=== PATIENT | male | born 1960 | race Caucasian/White ===

== ENCOUNTER 2017-07-01 16:11 | Emergency (ER) | payer MEDICARE, OTHER ==
[~2017-07-01] VITALS: Ht 180.3 cm; Wt 72.6 kg
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
--- OUTSIDE RECORDS SUMMARY | 2017-07-01 16:35 | XMS REPORT ---
Author Author ARBEN MEDINA Organization [facility] [place] Address [address] [place] [address] Care Team Providers Care Grocery Store Manager Name Role Phone ARBEN MEDINA Unavailable PROBLEMS Type Condition ICD9-CM Code [id number] Code Onset Dates Condition Status SNOMED Code Problem Paranoid schizophrenia, unspecified condition 295.30 Active 67014525 Problem Routine general medical examination at health care facility V70.0 Active 905574981 Problem Chronic hepatitis C without mention of hepatic coma 070.54 Active 101535757 Problem Mood disorder F39 Active 20572985 Problem Delusional disorder F22 Active 34986972 Problem Hernia of unspecified site of abdominal cavity without mention of obstruction or gangrene 553.9 Active 07070574 Problem Unspecified episodic mood disorder 296.90 Active 279074428 Problem Encounter for long-term (current) use of other medications V58.69 Active 866174622 Problem Abdominal pain, generalized 789.07 Active 996626708 ALLERGIES Unknown Allergies SOCIAL HISTORY No smoking Hx information available PLAN OF CARE VITAL SIGNS MEDICATIONS Medication Instructions Dosage Frequency Start Date End Date Duration Status Seroquel 200 MG Orally twice a day 1 tablet 12h 20 Mar, 2016 Active RESULTS No Results PROCEDURES No Known procedures IMMUNIZATIONS No Known Immunizations
--- OUTSIDE RECORDS SUMMARY | 2017-07-01 16:35 | XMS REPORT ---
Author Author ARBEN MEDINA Organization [facility] Address [address] [place] [address] Care Team Providers Care Managing Broker Name Role Phone ARBEN MEDINA Unavailable PROBLEMS Type Condition ICD9-CM Code VOL29-MV Code Onset Dates Condition Status SNOMED Code Problem Paranoid schizophrenia, unspecified condition 295.30 Active 16274552 Problem Routine general medical examination at health care facility V70.0 Active 101588124 Problem Chronic hepatitis C without mention of hepatic coma 070.54 Active 716424231 Assessment Mood disorder F39 Feb, Active 78711057 Problem Mood disorder F39 Active 04595833 Problem Delusional disorder F22 Active 33220382 Problem Hernia of unspecified site of abdominal cavity without mention of obstruction or gangrene 553.9 Active 52148418 Problem Unspecified episodic mood disorder 296.90 Active 519990813 Problem Encounter for long-term (current) use of other medications V58.69 Active 841217774 Problem Abdominal pain, generalized 789.07 Active 277576501 ALLERGIES Unknown Allergies SOCIAL HISTORY No smoking Hx information available PLAN OF CARE VITAL SIGNS Height 71 in 2016-03-15 Weight 161 lbs 2016-03-15 Heart Rate 72 bpm 2016-03-15 Respiratory Rate 16 2016-03-15 BMI 22.45 kg/m2 2016-03-15 Blood pressure systolic 120 mmHg 2016-03-15 Blood pressure diastolic 78 mmHg 2016-03-15 MEDICATIONS Medication Instructions Dosage Frequency Start Date End Date Duration Status Trazodone HCl 100 MG Orally Once a day 1 tablet at bedtime 24h Feb, 30 day(s) Active Haloperidol 5 MG Orally Twice a day 1 tablet 12h Feb, 30 day(s ) Active RESULTS No Results PROCEDURES Procedure Date Ordered Related Diagnosis Body Site Office Visit, New Pt., Level 2 Mar 15, 2016 IMMUNIZATIONS No Known Immunizations
--- OUTSIDE RECORDS SUMMARY | 2017-07-01 16:35 | XMS REPORT | Continuity of Care Document ---
Author Author [facility] Address Unknown Phone Unavailable Allergies There is no data. Medications There is no data. Problems Date Dx Coded Attending Type Code Diagnosis Diagnosed By 05/08/2013 OJ SALDAÑA APRN 070.54 HEPATITIS C CHRONIC 05/08/2013 OJ SALDAÑA APRN S 296.90 MOOD DISORDER 05/08/2013 OJ SALDAÑA APRN S 553.9 HERNIA UNSPECIFIED SITE 05/08/2013 OJ SALDAÑA APRN S 789.07 ABDOMINAL PAIN GENERALIZED 05/08/2013 OJ SALDAÑA APRN S V58.69 HIGH RISK MEDICATION 05/08/2013 OJ SALDAÑA APRN S V70.0 EXAM - ROUTINE H&P 05/08/2013 OJ SALDAÑA APRN S 070.54 HEPATITIS C CHRONIC 05/08/2013 OJ SALDAÑA APRN S 296.90 MOOD DISORDER 05/08/2013 OJ SALDAÑA APRN S 553.9 HERNIA UNSPECIFIED SITE 05/08/2013 OJ SALDAÑA APRN S 789.07 ABDOMINAL PAIN GENERALIZED 05/08/2013 OJ SALDAÑA APRN S V58.69 HIGH RISK MEDICATION 05/08/2013 OJ SALDAÑA APRN S V70.0 EXAM - ROUTINE H&P 05/08/2013 VENANCIO BENNETT MD 070.54 HEPATITIS C CHRONIC 05/08/2013 VENANCIO BENNETT MD 296.90 MOOD DISORDER 05/08/2013 VENANCIO BENNETT MD 553.9 HERNIA UNSPECIFIED SITE 05/08/2013 VENANCIO BENNETT MD 789.07 ABDOMINAL PAIN GENERALIZED 05/08/2013 VENANCIO BENNETT MD V58.69 HIGH RISK MEDICATION 05/08/2013 VENANCIO BENNETT MD V70.0 EXAM - ROUTINE H&P 05/08/2013 VENANCIO BENNETT MD 070.54 HEPATITIS C CHRONIC 05/08/2013 VENANCIO BENNETT MD 296.90 MOOD DISORDER 05/08/2013 VENANCIO BENNETT MD 553.9 HERNIA UNSPECIFIED SITE 05/08/2013 VENANCIO BENNETT MD 789.07 ABDOMINAL PAIN GENERALIZED 05/08/2013 VENANCIO BENNETT MD V58.69 HIGH RISK MEDICATION 05/08/2013 VENANCIO BENNETT MD V70.0 EXAM - ROUTINE H&P 05/08/2013 JOSH PEPPER APRN 070.54 HEPATITIS C CHRONIC 05/08/2013 JOSH PEPPER APRN 296.90 MOOD DISORDER 05/08/2013 JOSH PEPPER APRN 553.9 HERNIA UNSPECIFIED SITE 05/08/2013 JOSH PEPPER APRN 789.07 ABDOMINAL PAIN GENERALIZED 05/08/2013 JOSH PEPPER APRN V58.69 HIGH RISK MEDICATION 05/08/2013 JOSH PEPPER APRN V70.0 EXAM - ROUTINE H&P 06/10/2013 VENANCIO BENNETT MD 295.30 P SCHIZO PARANOID UNSPECIFIED 06/10/2013 VENANCIO BENNETT MD 295.30 P SCHIZO PARANOID UNSPECIFIED 06/10/2013 JOSH PEPPER APRN 295.30 P SCHIZO PARANOID UNSPECIFIED Procedures Code [place] [address] ROUTINE VENIPUNCTURE 05/08/2013 12305 CBC 05/08/2013 0804397 GFR CALC (RESULT ONLY) 05/08/2013 16634 CMP 05/08/2013 69711 LIPID PANEL 05/08/2013 92063 TSH 05/08/2013 78980 HEPATITIS PROFILE 05/08/2013 9486697 HCV INDEX (RESULT ONLY) 05/09/2013 15890 URINE DRUG SCREEN (IN-HOUSE ) 06/10/2013 Janette Campbell 06/11/2013 56380 PSYCH DIAGNOSTIC EVALUATION 07/23/2013 Results There is no data. Encounters ACCT No. Visit Date/Time Discharge Status Pt. Type Provider Facility Loc./Unit Complaint [id number] 07/23/2013 12:47:00 07/23/2013 23:59:59 CLS Outpatient JOSH PEPPER APRN [id number] 07/23/2013 12:47:00 07/23/2013 23:59:59 CLS Outpatient VENANCIO BENNETT MD [id number] 06/10/2013 10:49:00 06/10/2013 23:59:59 CLS Outpatient VENANCIO BENNETT MD [id number] 05/08/2013 14:56:00 05/08/2013 23:59:59 CLS Outpatient OJ SALDAÑA APRN [id number] 05/08/2013 14:56:00 05/08/2013 23:59:59 CLS Outpatient OJ SALDAÑA APRN
[2017-07-01 16:53] LABS: BASOPHILS # (AUTO) 0.1 10^3/uL (0.0-0.1); BASOPHILS % (AUTO) 0 % (0-10); EOSINOPHILS # (AUTO) 0.2 10^3/uL (0.0-0.3); EOSINOPHILS % (AUTO) 1 % (0-10); HEMATOCRIT 43 % (40-54); HEMOGLOBIN 14.8 G/DL (13.3-17.7); LYMPHOCYTES # (AUTO) 2.8 X 10^3 (1.0-4.0); LYMPHOCYTES % (AUTO) 16 % (12-44); MEAN CORPUSCULAR HEMOGLOBIN 32 PG (25-34); MEAN CORPUSCULAR HGB CONC 34 G/DL (32-36); MEAN CORPUSCULAR VOLUME 92 FL (80-99); MONOCYTES # (AUTO) 1.5 X 10^3 (0.0-1.0); MONOCYTES % (AUTO) 9 % (0-12); NEUTROPHILS # (AUTO) 12.5 X 10^3 (1.8-7.8); NEUTROPHILS % (AUTO) 74 % (42-75); PLATELET COUNT 313 10^3/uL (130-400); RED CELL DISTRIBUTION WIDTH 13.9 % (10.0-14.5)
[2017-07-01] MEDS ORDERED: NS 250 ML (IVPB) BAG IV ONE (17:00)
[2017-07-01] MEDS ORDERED: IOHEXOL 350 MG/ML 100 ML (OMNIPAQUE 350) VIAL IV ONE ×2 (17:00→17:30)
[2017-07-01] MEDS ORDERED: CATHETER FLUSH 10 ML SYR IV PRN (17:00)
[2017-07-01 17:11] LABS: BAND NEUTROPHILS 7 %; BASOPHILS % (MANUAL) 1 %; EOSINOPHILS % (MANUAL) 1 %; LYMPHOCYTES % (MANUAL) 14 %; MONOCYTES % (MANUAL) 4 %; NEUTROPHILS % (MANUAL) 61 %; REACTIVE LYMPHOCYTES 12 %
[2017-07-01 17:12] LABS: ELLIPT/OVALOCYTES SLIGHT; PLATELET CLUMPS OCCASIONAL; POIKILOCYTOSIS SLIGHT; ROULEAUX SLIGHT; STOMATOCYTES SLIGHT
[2017-07-01 17:15] LABS: ALANINE AMINOTRANSFERASE 25 U/L (0-55); ALBUMIN 4.6 GM/DL (3.2-4.5); ALKALINE PHOSPHATASE 58 U/L (40-136); BILIRUBIN,TOTAL 0.9 MG/DL (0.1-1.0); BUN/CREATININE RATIO 12; CALCIUM 9.7 MG/DL (8.5-10.1); CARBON DIOXIDE 28 MMOL/L (21-32); CHLORIDE 100 MMOL/L (98-107); CREATININE SERUM 0.98 MG/DL (0.60-1.30); GFR ESTIMATED > 60; GLUCOSE 127 MG/DL (70-105); POTASSIUM 4.1 MMOL/L (3.6-5.0); SODIUM 138 MMOL/L (135-145); TOTAL PROTEIN 7.9 GM/DL (6.4-8.2)
[2017-07-01] MEDS ORDERED: NS 100 ML (IVPB) BAG IV ONE (17:30)
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
[2017-07-01] MEDS ORDERED: fentaNYL INJECTION 100 MCG/2 ML AMP IVP ONE (18:15)
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
[2017-07-01 19:25] LABS: BILIRUBIN,URINE NEGATIVE (NEGATIVE); CLARITY,URINE SLIGHTLY CLOUDY; COLOR,URINE YELLOW; GLUCOSE, URINE (UA) NEGATIVE (NEGATIVE); KETONES,URINE 1+ (NEGATIVE); LEUKOCYTE ESTERASE ,URINE NEGATIVE (NEGATIVE); NITRITE,URINE NEGATIVE (NEGATIVE); PH,URINE 5 (5-9); PROTEIN,URINE 1+ (NEGATIVE); UROBILINOGEN,URINE NORMAL (NORMAL)
[2017-07-01 19:32] LABS: BACTERIA,URINE NEGATIVE /HPF; SQUAMOUS EPITHELIAL CELL,UR RARE /HPF
[2017-07-01 19:35] VITALS: BP 132/90
[2017-07-01 19:36] LABS: AMPHETAMINE SCREEN, URINE POSITIVE (NEGATIVE); BARBITURATE SCREEN URINE NEGATIVE (NEGATIVE); BENZODIAZEPINES SCREEN URINE NEGATIVE (NEGATIVE); CANNABINOID SCREEN, URINE POSITIVE (NEGATIVE); COCAINE SCREEN URINE NEGATIVE (NEGATIVE); METHADONE STAT NEGATIVE (NEGATIVE); METHAMPHETAMINE SCREEN URINE S POSITIVE (NEGATIVE); OPIATE SCREEN URINE NEGATIVE (NEGATIVE); OXYCODONE STAT NEGATIVE (NEGATIVE); PROPOXYPHENE STAT NEGATIVE (NEGATIVE); TRICYCLIC ANTIDEPRESSANTS SCRE NEGATIVE (NEGATIVE)
== END 2017-07-01 19:35 | disposition short-term general hospital (02) ==
LOC: EDUNIT# 16:11 → ER 16:12
DX: S32.492A Other specified fracture of left acetabulum, initial encounter for closed fracture (principal); R40.2142 Coma scale, eyes open, spontaneous, at arrival to emergency department; R40.2252 Coma scale, best verbal response, oriented, at arrival to emergency department; R40.2362 Coma scale, best motor response, obeys commands, at arrival to emergency department; V49.40XA Driver injured in collision with unspecified motor vehicles in traffic accident, initial encounter; Y92.410 Unspecified street and highway as the place of occurrence of the external cause
CPT/HCPCS: 36415; 70450; 71260; 72125; 72131; 73030; 73552; 73590; 74177; 80053; 80306; 81000; 85007; 85027; 96374

== ENCOUNTER 2017-07-05 10:32 | Inpatient (IN) | payer MEDICARE ==
[~2017-07-05] VITALS: Ht 180.3 cm; Wt 73.1 kg
[2017-07-05] MEDS ORDERED: RT-ALBUTEROL SULF 2.5 MG/3 ML PRE-MIX VIAL INH PRN (16:45)
[2017-07-05] MEDS ORDERED: INFLUENZA TRIvalent 2017-2018 0.5 ML/45 MCG SYR IM ONE (16:45)
--- NOTE | 2017-07-05 17:33 | PM&R Post Admission Assessment ---
Post Admission Physician Asses The preadmission screen agrees with the post admission assessment that the patient is a good candidate for inpatient rehabilitation. The patient will have a comprehensive program of inpatient rehabilitation with a goal of maximizing level of functional independence prior to discharge home with sister and C. The patient will have PT/OT ninety minutes per day, each discipline, five days a week for gait, strengthening, conditioning, balance, ADLs, any patient/family/caregiver training as necessary. Speech therapy to do cognitive assessment and treat as indicated. Rehabilitation nursing to assist with bowel, bladder, skin, wound care, medication administration, pain management. Furnace Mechanic to assist with discharge planning, community reentry. SCD's and Lovenox subcut for DVT prophylaxis. He appears to be well motivated to participate in three hours of therapy a day. He should be able to tolerate three hours of therapy a day from a medical standpoint. He should benefit from the three hours of therapy a day. He has a reasonable discharge plan, reasonable discharge rehabilitation goals and a supportive family. He has various comorbidities that need to be closely monitored with medications and treatments adjusted on a daily basis as needed. These include: recurrent schizophrenia depression anxiety Poor bone healing Barriers to discharge for this patient who had been independent prior to this are for him to be modified independent to supervision for ADLs and mobility skills prior to discharge home with sister and C, so as to lessen the burden of the caregivers. Risks for this patient include: 1. Fall 2. Fracture 3. DVT 4. Pulmonary embolism 5. Recurrent schizophrenia 6. Skin breakdown 7. Contractures 8. Poorly controlled pain 9. Urinary retention 10. UTI 11. Respiratory infection 12. Aspiration Estimated Length of Stay: 14 days Prognosis: Rehab prognosis appears good for goal of discharge home with sister modified independent to supervision for ADLs and mobility skills at the w/c level of function initially due to TTWB LLE. REHANA MORENO MD Jul 05, 2017 17:33
[2017-07-05 18:00] VITALS: BP 139/89
[2017-07-05] MEDS: ENOXAPARIN 30 MG/0.3 ML (LOVENOX) SYR SC SCH (18:22)
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
[2017-07-05] MEDS: POLYETHYLENE GLYCOL 17 GM (MIRALAX) PACK PO SCH (20:53)
[2017-07-05] MEDS: METHOCARBAMOL 750 MG (ROBAXIN) TAB PO SCH (20:53)
[2017-07-05] MEDS: SENNA W/DOCUSATE (SENOKOT S) TABLET PO SCH (20:53)
[2017-07-05] MEDS: ACETAMINOPHEN 325 MG TABLET/CAPLET (TYLENOL) PO PRN (20:57)
[2017-07-06 05:03] VITALS: BP 134/86
[2017-07-06] MEDS: METHOCARBAMOL 750 MG (ROBAXIN) TAB PO SCH ×3 (08:12→19:36)
[2017-07-06] MEDS: SENNA W/DOCUSATE (SENOKOT S) TABLET PO SCH ×2 (08:13→19:36)
[2017-07-06] MEDS: ACETAMINOPHEN 325 MG TABLET/CAPLET (TYLENOL) PO PRN ×3 (08:15→17:58)
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
--- NOTE | 2017-07-06 14:00 | Physical Therapy Daily Note ---
PT Daily Note-Current Subjective Patient in recliner pre tx, agrees to PT, states he has 7/10 pain in left shoulder and pelvis. Patient expresses he is very dissatisfied with his pain management. Appearance Patient in recliner post tx with nurse call, phone, tray, all needs met. Mental Status Patient Orientation: Person, Place, Situation Transfers Functional [place] Measure 0=Not Assessed/NA 4=Minimal Assistance 1=Total Assistance 5=Supervision or Setup 2=Maximal Assistance 6=Modified [place] 3=Moderate Assistance 7=Complete IndependenceIRFPAI Quality Coding Scale 6 Independent with activity with or without an assistive device 5 Patient requires set up or clean up by helper. Patient completes activity by themselves 4 Supervision or touching assist (CGA). [place] provide cues , steadying assist 3 The helper provides less than half the effort to complete the activity 2 The helper provides more than half the effort to complete the activity 1 Dependent. The helper does all the effort to complete an activity 7 Patient refused to complete or attempt activity 9 The patient did not perform the activity before the current illness or injury 88 Not attempted due to Medical conditions or safety concerns Transfers (B, C, W/C) (FIM): 5 Sit to/from Stand: 5 Weight Bearing Right Lower Extremity: Right Full Weight Bearing Left Lower Extremity: Left Touch Toe Bearing Gait Training Gait (FIM): 2 Distance: 120', 80' Gait Level of Assist: 5 Gait Persons Needed: 1 Gait Assistive Device: Walker Platform Patient ambulates very slowly, antalgic, occasional standing rest breaks. Patient is compliant with his left leg weight bearing status. Treatments transfers, ambulation Assessment Current Status: Fair Progress Patient ambulates extremely slowly but carefully, he has already improved with ambulation. PT Short Term Goals Short Term Goals Time Frame: Jul 13, 2017 Gait (FIM): 2 Gait Distance Comment: 100' Gait Level of Assist: 5 Gait Assistive Device: Walker Platform Wheelchair (FIM): 5 Wheelchair Distance: 150' Wheelchair Level of Assist: 5 PT Penitentiary Goals Penitentiary Goals PT Penitentiary Goals Time Frame: Jul 27, 2017 Transfers (B,C,W/C) (FIM): 6 Sit to Lying (QC): 6 Lying-Sitting on Side/Bed(QC): 6 Sit to Stand (QC): 6 Rollin Roll Left to Right (QC): 6 Chair/Fpf-nz-Ghwun Xfer(QC): 6 Car Transfer (QC): 6 Gait (FIM): 5 Distance: 200' Walk 10 feet (QC): 4 Walk 10ft-Uneven Surface(QC): 4 Walk 50ft with 2 Turns (QC): 4 Walk 150 ft (QC): 4 Gait Level of Assist: 4 Gait Assistive Device: Walker Platform Stairs (FIM): 1 # of Steps: 1 1 Step (curb) (QC): 4 Stairs Level Of Assist: 4 PT Plan Problem List Problem List: Activity Tolerance, Functional Strength, Safety, Balance, Gait, Transfer, Bed Mobility, ROM Treatment/Plan Treatment Plan: Continue Plan of Care Treatment Plan: Bed Mobility, Education, Functional Activity Nancy, Functional Strength, Group Therapy, Gait, Safety, Therapeutic Exercise, Transfers Treatment Duration: Jul 27, 2017 Frequency: At least 5 of 7 days/Wk (IRF) Estimated Hrs Per Day: 1.5 hours per day Patient and/or Family Agrees t: Yes Safety Risks/Education Patient Education: Gait Training, Transfer Techniques, Reviewed Precautions, Correct Positioning, Safety Issues Teaching Recipient: Patient Teaching Methods: Demonstration, Discussion Response to Teaching: Reinforcement Needed Time/GCodes Time In: 1330 Time Out: 1400 Total Billed Treatment Time: 30 Total Billed Treatment 1 visit GT 30' JALYN REYES PT Jul 06, 2017 14:00
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
--- NOTE | 2017-07-06 15:54 | Occupational Ther Daily Note ---
OT Current Status-Daily Note Subjective No pain reported. Appearance Pt. up in chair. Agrees to work with OT. Mental Status/Objective Patient Orientation: Person, Place Functional [place] Measure 0=Not Assessed/NA 4=Minimal Assistance 1=Total Assistance 5=Supervision or Setup 2=Maximal Assistance 6=Modified [place] 3=Moderate Assistance 7=Complete [place] ADL-Treatment Functional [place] Measure 0=Not Assessed/NA 4=Minimal Assistance 1=Total Assistance 5=Supervision or Setup 2=Maximal Assistance 6=Modified [place] 3=Moderate Assistance 7=Complete IndependenceIRFPAI Quality Coding Scale 6 Independent with activity with or without an assistive device 5 Patient requires set up or clean up by helper. Patient completes activity by themselves 4 Supervision or touching assist (CGA). [place] provide cues , steadying assist 3 The helper provides less than half the effort to complete the activity 2 The helper provides more than half the effort to complete the activity 1 Dependent. The helper does all the effort to complete an activity 7 Patient refused to complete or attempt activity 9 The patient did not perform the activity before the current illness or injury 88 Not attempted due to Medical conditions or safety concerns Transfers (B, C, W/C) (FIM): 5 (SBA to stand and ambulate with platform walker , and then to transfer to and from wheelchair from regular chair.) Pt. ambulated senior living to therapy gym and then requested wheelchair. Once in wheelchair, pt. independent with self propulsion to therapy gym. Completed 11 minutes on armbike at min resistance. Utilized right UE mainly and only put left UE on bike for ROM factor. Tolerated this well. Went back to room and pt. stood to ambulate with platform walker rest of way. Transferred to chair. All needs met in room. Pt. educated again on adaptive equipment for LE dressing. Verbalizes understanding. Education OT Patient Education: Correct positioning, Exercise program, Modified ADL techniques, Progress toward Goal/Update tx plan, Purpose of tx/functional activities, Reviewed precautions, Rehab process, Transfer techniques, Use of adapted equipment Teaching Recipient: Patient Teaching Methods: Demonstration, Discussion Response to Teaching: Verbalize Understanding, Return Demonstration OT Short Term Goals Short Term Goals 1=Demonstrate adherence to instructed precautions during ADL tasks. 2=Patient will verbalize/demonstrate understanding of assistive devices/ modifications for ADL. 3=Patient will improve strength/tolerance for activity to enable patient to perform ADL's. OT Retirement Goals Retirement Goals Time Frame: Jul 13, 2017 Eating (FIM): 6 Eating (QC): 6 Groomin Oral Hygiene (QC): 6 Bathing(FIM): 6 Shower/Bathe Self (QC): 6 Upper Body Dressing(FIM): 6 Upper Body Dressing (QC): 6 Lower Body Dressing(FIM): 6 Lower Body Dressing (QC): 6 On/Off Footwear (QC): 6 Toileting(FIM): 6 Toileting Hygiene (QC): 6 Transfers (B,C,W/C) (FIM): 6 Toilet/Commode Transfer(FIM): 6 Toilet/Commode Transfer (QC): 6 Shower Transfer(FIM): 6 Additional Goals: 1-Demonstrate ADL Tasks, 2-Verbalize Understanding, 3- ImproveStrength/Nancy 1=Demonstrate adherence to instructed precautions during ADL tasks. 2=Patient will verbalize/demonstrate understanding of assistive devices/ modifications for ADL. 3=Patient will improve strength/tolerance for activity to enable patient to perform ADL's. OT Education/Plan Problem List/Assessment Assessment: Decreased Activ Tolerance, Decreased UE Strength, Dependent Transfers, Impaired Bed Mobility, Impaired Funct Balance, Impaired I ADL's, Impaired Self-Care Skills Discharge Recommendations Plan/Recommendations: Continue POC Therapy D/C Recommendations: Home w/ Family Support, Occupational Therapy Home Care Comment Pt. will need a walker and shower chair. Treatment Plan/Plan of Care Treatment,Training & Education: Yes Patient would benefit from OT for education, treatment and training to promote independence in ADL's, mobility, safety and/or upper extremity function for ADL' s. Plan of Care: ADL Retraining, Functional Mobility, UE Funct Exercise/Act Treatment Duration: Jul 13, 2017 Frequency: At least 5 of 7 days/Wk (IRF) Estimated Hrs Per Day: 1.5 hours per day Agreement: Yes Rehab Potential: Good Time/GCodes Start Time: 14:00 Stop Time: 14:30 Total Time Billed (hr/min): 30 Billed Treatment Time 1, EX x 2 DELFINA JACKSON OT Jul 06, 2017 15:54
[2017-07-06] MEDS: ENOXAPARIN 30 MG/0.3 ML (LOVENOX) SYR SC SCH (16:32)
[2017-07-06 18:03] VITALS: BP 147/88
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
[2017-07-06] MEDS: POLYETHYLENE GLYCOL 17 GM (MIRALAX) PACK PO SCH (19:36)
[2017-07-07 05:04] VITALS: BP 138/90
[2017-07-07] MEDS: SENNA W/DOCUSATE (SENOKOT S) TABLET PO SCH ×2 (07:41→20:12)
[2017-07-07] MEDS: METHOCARBAMOL 750 MG (ROBAXIN) TAB PO SCH ×3 (07:41→20:12)
--- NOTE | 2017-07-07 08:41 | Occupational Ther Daily Note ---
OT Current Status-Daily Note Subjective Pt. states that he is stiff this morning. Reports 4/10 pain in left UE/LE. Pt. receives pain medication from nursing while OT in room. Appearance Pt. up in chair. Declines showering today but agrees to work with OT. Mental Status/Objective Patient Orientation: Person, Place Functional [place] Measure 0=Not Assessed/NA 4=Minimal Assistance 1=Total Assistance 5=Supervision or Setup 2=Maximal Assistance 6=Modified [place] 3=Moderate Assistance 7=Complete [place] ADL-Treatment Functional [place] Measure 0=Not Assessed/NA 4=Minimal Assistance 1=Total Assistance 5=Supervision or Setup 2=Maximal Assistance 6=Modified [place] 3=Moderate Assistance 7=Complete IndependenceIRFPAI Quality Coding Scale 6 Independent with activity with or without an assistive device 5 Patient requires set up or clean up by helper. Patient completes activity by themselves 4 Supervision or touching assist (CGA). [place] provide cues , steadying assist 3 The helper provides less than half the effort to complete the activity 2 The helper provides more than half the effort to complete the activity 1 Dependent. The helper does all the effort to complete an activity 7 Patient refused to complete or attempt activity 9 The patient did not perform the activity before the current illness or injury 88 Not attempted due to Medical conditions or safety concerns Transfers (B, C, W/C) (FIM): 5 (Pt requires SBA to ambulate with platform walker to therapy gym.) Other Treatment Pt. completed 20 minutes on armbike at min resistance to increase overall strength and endurance. Pt. switched between right and left UE. Tolerated treatment well. Pt. then completed arm arc activity with left UE for ROM increase. Pt. tolerated this as well. States, "I don't think I will be here long." Pt. ambulated back to room with SBA with walker. Pt. requires several brief rest breaks and cues at times to stay on task. Decreased attention noted. All needs met in room. Education OT Patient Education: Correct positioning, Exercise program, Modified ADL techniques, Progress toward Goal/Update tx plan, Purpose of tx/functional activities, Reviewed precautions, Rehab process, Transfer techniques Teaching Recipient: Patient Teaching Methods: Demonstration, Discussion Response to Teaching: Verbalize Understanding, Return Demonstration OT Short Term Goals Short Term Goals 1=Demonstrate adherence to instructed precautions during ADL tasks. 2=Patient will verbalize/demonstrate understanding of assistive devices/ modifications for ADL. 3=Patient will improve strength/tolerance for activity to enable patient to perform ADL's. OT Defensive Line Coach Goals Penitentiary Goals Time Frame: Jul 13, 2017 Eating (FIM): 6 Eating (QC): 6 Groomin Oral Hygiene (QC): 6 Bathing(FIM): 6 Shower/Bathe Self (QC): 6 Upper Body Dressing(FIM): 6 Upper Body Dressing (QC): 6 Lower Body Dressing(FIM): 6 Lower Body Dressing (QC): 6 On/Off Footwear (QC): 6 Toileting(FIM): 6 Toileting Hygiene (QC): 6 Transfers (B,C,W/C) (FIM): 6 Toilet/Commode Transfer(FIM): 6 Toilet/Commode Transfer (QC): 6 Shower Transfer(FIM): 6 Additional Goals: 1-Demonstrate ADL Tasks, 2-Verbalize Understanding, 3- ImproveStrength/Nancy 1=Demonstrate adherence to instructed precautions during ADL tasks. 2=Patient will verbalize/demonstrate understanding of assistive devices/ modifications for ADL. 3=Patient will improve strength/tolerance for activity to enable patient to perform ADL's. OT Education/Plan Problem List/Assessment Assessment: Decreased Activ Tolerance, Impaired I ADL's, Impaired Self-Care Skills Discharge Recommendations Plan/Recommendations: Continue POC Therapy D/C Recommendations: Home w/ Family Support Equpiment Recommendations-D/C: Hip Kit Treatment Plan/Plan of Care Treatment,Training & Education: Yes Patient would benefit from OT for education, treatment and training to promote independence in ADL's, mobility, safety and/or upper extremity function for ADL' s. Plan of Care: ADL Retraining, Functional Mobility, UE Funct Exercise/Act Treatment Duration: Jul 13, 2017 Frequency: At least 5 of 7 days/Wk (IRF) Estimated Hrs Per Day: 1.5 hours per day Agreement: Yes Rehab Potential: Good Time/GCodes Start Time: 07:30 Stop Time: 08:30 Total Time Billed (hr/min): 60 Billed Treatment Time 1, Ex x 30minutes, FA x 30minutes DELFINA JACKSON OT Jul 07, 2017 08:41
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
[2017-07-07] MEDS: MILK OF MAGNESIA 400 MG/5 ML 30 ML UDC PO PRN ×2 (09:11→20:12)
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
--- NOTE | 2017-07-07 11:52 | Physical Therapy Daily Note ---
PT Daily Note-Current Subjective Patient in recliner pre tx, agrees to PT, has 6/10 pain. Patient states he has not had a BM but feels like it may happen later. Appearance Patient in recliner post tx with nurse call, phone, tray, all needs met. Mental Status Patient Orientation: Person, Place, Situation Transfers Functional [place] Measure 0=Not Assessed/NA 4=Minimal Assistance 1=Total Assistance 5=Supervision or Setup 2=Maximal Assistance 6=Modified [place] 3=Moderate Assistance 7=Complete IndependenceIRFPAI Quality Coding Scale 6 Independent with activity with or without an assistive device 5 Patient requires set up or clean up by helper. Patient completes activity by themselves 4 Supervision or touching assist (CGA). [place] provide cues , steadying assist 3 The helper provides less than half the effort to complete the activity 2 The helper provides more than half the effort to complete the activity 1 Dependent. The helper does all the effort to complete an activity 7 Patient refused to complete or attempt activity 9 The patient did not perform the activity before the current illness or injury 88 Not attempted due to Medical conditions or safety concerns Transfers (B, C, W/C) (FIM): 5 Sit to/from Stand: 5 Bed to/from Chair: 5 Weight Bearing Right Lower Extremity: Right Full Weight Bearing Left Lower Extremity: Left Touch Toe Bearing Gait Training Gait (FIM): 2 Distance: 100'x2 Gait Level of Assist: 5 Gait Persons Needed: 1 Gait Assistive Device: Walker Platform slow, antalgic, patient is compliant with weight bearing status Exercises LAQ alternating for 5 min NuStep Minutes: 20 NuStep Workload: 5 (left leg off of the machine) Treatments transfers, ambulation, functional strengthening Assessment Current Status: Fair Progress improving endurance PT Short Term Goals Short Term Goals Time Frame: Jul 13, 2017 Gait (FIM): 2 Gait Distance Comment: 100' Gait Level of Assist: 5 Gait Assistive Device: Walker Platform Wheelchair (FIM): 5 Wheelchair Distance: 150' Wheelchair Level of Assist: 5 PT Assisted Goals Assisted Goals PT Assisted Goals Time Frame: Jul 27, 2017 Transfers (B,C,W/C) (FIM): 6 Sit to Lying (QC): 6 Lying-Sitting on Side/Bed(QC): 6 Sit to Stand (QC): 6 Rollin Roll Left to Right (QC): 6 Chair/Rkt-km-Ohtpr Xfer(QC): 6 Car Transfer (QC): 6 Gait (FIM): 5 Distance: 200' Walk 10 feet (QC): 4 Walk 10ft-Uneven Surface(QC): 4 Walk 50ft with 2 Turns (QC): 4 Walk 150 ft (QC): 4 Gait Level of Assist: 4 Gait Assistive Device: Walker Platform Stairs (FIM): 1 # of Steps: 1 1 Step (curb) (QC): 4 Stairs Level Of Assist: 4 PT Plan Problem List Problem List: Activity Tolerance, Functional Strength, Safety, Balance, Gait, Transfer, Bed Mobility, ROM Treatment/Plan Treatment Plan: Continue Plan of Care Treatment Plan: Bed Mobility, Education, Functional Activity Nancy, Functional Strength, Group Therapy, Gait, Safety, Therapeutic Exercise, Transfers Treatment Duration: Jul 27, 2017 Frequency: At least 5 of 7 days/Wk (IRF) Estimated Hrs Per Day: 1.5 hours per day Patient and/or Family Agrees t: Yes Safety Risks/Education Patient Education: Gait Training, Transfer Techniques, Correct Positioning, Safety Issues Teaching Recipient: Patient Teaching Methods: Demonstration, Discussion Response to Teaching: Reinforcement Needed Time/GCodes Time In: 1100 Time Out: 1200 Total Billed Treatment Time: 60 Total Billed Treatment 1 visit EX 25' GT 35' JALYN REYES PT Jul 07, 2017 11:52
--- NOTE | 2017-07-07 14:37 | Therapy Group Daily Note ---
Therapy Daily Group Note Patient Education Topic Home Safety, Other List Below ([facility] to rehab to home) Exercises LE Seated Exercise, UE Exercise Other/Notes Pt. participated in PT OT group this date. Pt. came with assist with FWW. Pts socialized, introduced selves and shared mutual interests etc. Pts interacted with [id number] Home safety question/answer game with bag toss and seated U&L extremity exercises . Pts interacted well. Local resources after DC were shared. Pt to room after , call chavez at hand Start Time: 13:30 Stop Time: 14:00 Total Billed Treatment Time: 30 Total Billed Treatment 1,GRP HUMA CINTRON CVOR NURSE Jul 07, 2017 14:37
--- NOTE | 2017-07-07 14:49 | Physical Therapy Daily Note ---
PT Daily Note-Current Subjective Agreeable. Transfers Functional [place] Measure 0=Not Assessed/NA 4=Minimal Assistance 1=Total Assistance 5=Supervision or Setup 2=Maximal Assistance 6=Modified [place] 3=Moderate Assistance 7=Complete IndependenceIRFPAI Quality Coding Scale 6 Independent with activity with or without an assistive device 5 Patient requires set up or clean up by helper. Patient completes activity by themselves 4 Supervision or touching assist (CGA). [place] provide cues , steadying assist 3 The helper provides less than half the effort to complete the activity 2 The helper provides more than half the effort to complete the activity 1 Dependent. The helper does all the effort to complete an activity 7 Patient refused to complete or attempt activity 9 The patient did not perform the activity before the current illness or injury 88 Not attempted due to Medical conditions or safety concerns Weight Bearing Right Lower Extremity: Right Full Weight Bearing Left Lower Extremity: Left Touch Toe Bearing Gait Training Does the Patient Walk?: Yes Gait (FIM): 5 Distance (FIM): 3=150 ft Distance: 150 ft x 3 Gait Assistive Device: FWW (platform; TTWB left) Exercises NuStep Minutes: 15 NuStep Workload: 5 (did not WB through right LE) PT Short Term Goals Short Term Goals Time Frame: Jul 13, 2017 Gait (FIM): 2 Gait Distance Comment: 100' Gait Level of Assist: 5 Gait Assistive Device: Walker Platform Wheelchair (FIM): 5 Wheelchair Distance: 150' Wheelchair Level of Assist: 5 PT Feed Research Technician Goals Care Home Goals PT Feed Research Technician Goals Time Frame: Jul 27, 2017 Transfers (B,C,W/C) (FIM): 6 Sit to Lying (QC): 6 Lying-Sitting on Side/Bed(QC): 6 Sit to Stand (QC): 6 Rollin Roll Left to Right (QC): 6 Chair/Vyf-gy-Ttmya Xfer(QC): 6 Car Transfer (QC): 6 Gait (FIM): 5 Distance: 200' Walk 10 feet (QC): 4 Walk 10ft-Uneven Surface(QC): 4 Walk 50ft with 2 Turns (QC): 4 Walk 150 ft (QC): 4 Gait Level of Assist: 4 Gait Assistive Device: Walker Platform Stairs (FIM): 1 # of Steps: 1 1 Step (curb) (QC): 4 Stairs Level Of Assist: 4 PT Plan Problem List Problem List: Activity Tolerance, Functional Strength, Safety Treatment/Plan Treatment Plan: Continue Plan of Care Treatment Plan: Bed Mobility, Education, Functional Activity Nancy, Functional Strength, Group Therapy, Gait, Safety, Therapeutic Exercise, Transfers Treatment Duration: Jul 27, 2017 Frequency: At least 5 of 7 days/Wk (IRF) Estimated Hrs Per Day: 1.5 hours per day Patient and/or Family Agrees t: Yes Safety Risks/Education Patient Education: Safety Issues Teaching Recipient: Patient Teaching Methods: Discussion Response to Teaching: Reinforcement Needed Time/GCodes Time In: 1400 Time Out: 1430 Total Billed Treatment Time: 30 Total Billed Treatment visit GT 15 EX 15 BELKIS NUÑEZ PT Jul 07, 2017 14:49
[2017-07-07] MEDS: ENOXAPARIN 40 MG/0.4 ML (LOVENOX) SYR SC SCH (16:18)
[2017-07-07 17:14] VITALS: BP 127/79
[2017-07-07] MEDS: POLYETHYLENE GLYCOL 17 GM (MIRALAX) PACK PO SCH (20:12)
[2017-07-08 05:03] VITALS: BP 126/76
[2017-07-08] MEDS: METHOCARBAMOL 750 MG (ROBAXIN) TAB PO SCH ×3 (08:32→20:42)
[2017-07-08] MEDS: SENNA W/DOCUSATE (SENOKOT S) TABLET PO SCH ×2 (08:32→20:42)
[2017-07-08] MEDS: ACETAMINOPHEN 325 MG TABLET/CAPLET (TYLENOL) PO PRN (09:54)
--- NOTE | 2017-07-08 12:02 | Physical Therapy Daily Note ---
PT Daily Note-Current Subjective Pt agreeable. Pain Numeric Pain Scale: 4 Location: Left Location Body Site: Hip Pain Description: Ache Mental Status Patient Orientation: Person, Place, Time, Situation Transfers Functional [place] Measure 0=Not Assessed/NA 4=Minimal Assistance 1=Total Assistance 5=Supervision or Setup 2=Maximal Assistance 6=Modified [place] 3=Moderate Assistance 7=Complete IndependenceIRFPAI Quality Coding Scale 6 Independent with activity with or without an assistive device 5 Patient requires set up or clean up by helper. Patient completes activity by themselves 4 Supervision or touching assist (CGA). [place] provide cues , steadying assist 3 The helper provides less than half the effort to complete the activity 2 The helper provides more than half the effort to complete the activity 1 Dependent. The helper does all the effort to complete an activity 7 Patient refused to complete or attempt activity 9 The patient did not perform the activity before the current illness or injury 88 Not attempted due to Medical conditions or safety concerns Sit to/from Stand: 5 Sit to Stand (QC): 5 Chair/Iiv-iz-Cqefp Xfer(QC): 5 Bed to/from Chair: 5 Weight Bearing Right Lower Extremity: Right Full Weight Bearing Left Lower Extremity: Left Touch Toe Bearing Gait Training Does the Patient Walk?: Yes Distance (FIM): 8=315-22 ft Distance: 100 Walk 10 feet (QC): 4 Walk 50 ft with 2 Turns(QC): 4 Gait Level of Assist: 5 Gait Persons Needed: 1 Gait Assistive Device: Walker Platform Boot in place on (R), compliance with TTWB on (L) LE Exercises NuStep Minutes: 11 NuStep Workload: 5 Treatments Ambulation with platform walker, NuStep for ROM, strengthening. Returned to chair with lunch tray set-up Assessment Current Status: Good Progress Pt tolerated well. Antalgic but safe gait. PT Short Term Goals Short Term Goals Time Frame: Jul 13, 2017 Gait (FIM): 2 Gait Distance Comment: 100' Gait Level of Assist: 5 Gait Assistive Device: Walker Platform Wheelchair (FIM): 5 Wheelchair Distance: 150' Wheelchair Level of Assist: 5 PT Intermediate Goals Intermediate Goals PT Intermediate Goals Time Frame: Jul 27, 2017 Transfers (B,C,W/C) (FIM): 6 Sit to Lying (QC): 6 Lying-Sitting on Side/Bed(QC): 6 Sit to Stand (QC): 6 Rollin Roll Left to Right (QC): 6 Chair/Zxj-kk-Zxxwr Xfer(QC): 6 Car Transfer (QC): 6 Gait (FIM): 5 Distance: 200' Walk 10 feet (QC): 4 Walk 10ft-Uneven Surface(QC): 4 Walk 50ft with 2 Turns (QC): 4 Walk 150 ft (QC): 4 Gait Level of Assist: 4 Gait Assistive Device: Walker Platform Stairs (FIM): 1 # of Steps: 1 1 Step (curb) (QC): 4 Stairs Level Of Assist: 4 PT Plan Problem List Problem List: Activity Tolerance, Functional Strength, Safety, Balance, Gait, Transfer, Bed Mobility, ROM Treatment/Plan Treatment Plan: Continue Plan of Care Treatment Plan: Bed Mobility, Education, Functional Activity Nancy, Functional Strength, Group Therapy, Gait, Safety, Therapeutic Exercise, Transfers Treatment Duration: Jul 27, 2017 Frequency: At least 5 of 7 days/Wk (IRF) Estimated Hrs Per Day: 1.5 hours per day Patient and/or Family Agrees t: Yes Time/GCodes Time In: 1110 Time Out: 1129 Total Billed Treatment Time: 19 Total Billed Treatment 1, Ex G Codes Necessary: NINI Vanegas DPCandice Jul 08, 2017 12:02
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
[2017-07-08] MEDS: ENOXAPARIN 40 MG/0.4 ML (LOVENOX) SYR SC SCH (16:29)
[2017-07-08 17:51] VITALS: BP 125/88
[2017-07-08] MEDS: POLYETHYLENE GLYCOL 17 GM (MIRALAX) PACK PO SCH (20:42)
[2017-07-08] MEDS: MILK OF MAGNESIA 400 MG/5 ML 30 ML UDC PO PRN (20:42)
[2017-07-09 06:06] VITALS: BP 115/72
[2017-07-09] MEDS: SENNA W/DOCUSATE (SENOKOT S) TABLET PO SCH ×2 (07:59→21:27)
[2017-07-09] MEDS: MILK OF MAGNESIA 400 MG/5 ML 30 ML UDC PO PRN (07:59)
[2017-07-09] MEDS: METHOCARBAMOL 750 MG (ROBAXIN) TAB PO SCH ×3 (07:59→21:26)
[2017-07-09] MEDS: ACETAMINOPHEN 325 MG TABLET/CAPLET (TYLENOL) PO PRN (07:59)
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
[2017-07-09] MEDS: ENOXAPARIN 40 MG/0.4 ML (LOVENOX) SYR SC SCH (16:26)
[2017-07-09 18:00] VITALS: BP 116/76
[2017-07-09] MEDS: POLYETHYLENE GLYCOL 17 GM (MIRALAX) PACK PO SCH (21:27)
[2017-07-10 06:17] VITALS: BP 122/81
[2017-07-10] MEDS: METHOCARBAMOL 750 MG (ROBAXIN) TAB PO SCH ×3 (07:51→19:58)
[2017-07-10] MEDS: SENNA W/DOCUSATE (SENOKOT S) TABLET PO SCH ×2 (07:52→19:58)
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
--- NOTE | 2017-07-10 10:09 | Occupational Ther Daily Note ---
OT Current Status-Daily Note Subjective Pt. reports some "stiffness" in left elbow, but does not report a pain level. States that he feels better as he starts to work with it. Appearance Pt. up in chair. Declines showering this date but agrees to work with OT. Mental Status/Objective Patient Orientation: Person, Place Functional [place] Measure 0=Not Assessed/NA 4=Minimal Assistance 1=Total Assistance 5=Supervision or Setup 2=Maximal Assistance 6=Modified [place] 3=Moderate Assistance 7=Complete [place] ADL-Treatment Functional [place] Measure 0=Not Assessed/NA 4=Minimal Assistance 1=Total Assistance 5=Supervision or Setup 2=Maximal Assistance 6=Modified [place] 3=Moderate Assistance 7=Complete IndependenceIRFPAI Quality Coding Scale 6 Independent with activity with or without an assistive device 5 Patient requires set up or clean up by helper. Patient completes activity by themselves 4 Supervision or touching assist (CGA). [place] provide cues , steadying assist 3 The helper provides less than half the effort to complete the activity 2 The helper provides more than half the effort to complete the activity 1 Dependent. The helper does all the effort to complete an activity 7 Patient refused to complete or attempt activity 9 The patient did not perform the activity before the current illness or injury 88 Not attempted due to Medical conditions or safety concerns Transfers (B, C, W/C) (FIM): 6 (Pt. is able to transfer self onto walker with Mod I. ) Other Treatment Pt. ambulated to therapy gym with Mod I. Pt. completed armbike x 17 minutes with bilateral UE at mod resistance. Pt. tolerated this well for increased UE strength and ROM/endurance. Pt. was continually asked how he felt. States that he is doing well. Pt. then donned 1 lb. wrist weights and completed nut/ bolt activity as well as arm arc activity to increase overall strength and endurance. Pt. does demonstrate some difficulty raising left UE past 90 degrees. Pt. encouraged to keep shoulder only at 90 degrees. Pt. states that he feels ready to go home. Will speak to PT regarding pt. going home. Education OT Patient Education: Correct positioning, Exercise program, Modified ADL techniques, Progress toward Goal/Update tx plan, Purpose of tx/functional activities, Reviewed precautions, Rehab process, Transfer techniques Teaching Recipient: Patient Teaching Methods: Demonstration, Discussion Response to Teaching: Verbalize Understanding, Return Demonstration OT Short Term Goals Short Term Goals 1=Demonstrate adherence to instructed precautions during ADL tasks. 2=Patient will verbalize/demonstrate understanding of assistive devices/ modifications for ADL. 3=Patient will improve strength/tolerance for activity to enable patient to perform ADL's. OT Prison Goals Informatics Scientist Goals Time Frame: Jul 13, 2017 Eating (FIM): 6 Eating (QC): 6 Groomin Oral Hygiene (QC): 6 Bathing(FIM): 6 Shower/Bathe Self (QC): 6 Upper Body Dressing(FIM): 6 Upper Body Dressing (QC): 6 Lower Body Dressing(FIM): 6 Lower Body Dressing (QC): 6 On/Off Footwear (QC): 6 Toileting(FIM): 6 Toileting Hygiene (QC): 6 Transfers (B,C,W/C) (FIM): 6 Toilet/Commode Transfer(FIM): 6 Toilet/Commode Transfer (QC): 6 Shower Transfer(FIM): 6 Additional Goals: 1-Demonstrate ADL Tasks, 2-Verbalize Understanding, 3- ImproveStrength/Nancy 1=Demonstrate adherence to instructed precautions during ADL tasks. 2=Patient will verbalize/demonstrate understanding of assistive devices/ modifications for ADL. 3=Patient will improve strength/tolerance for activity to enable patient to perform ADL's. OT Education/Plan Problem List/Assessment Assessment: Decreased Activ Tolerance, Impaired I ADL's Discharge Recommendations Plan/Recommendations: Continue POC Therapy D/C Recommendations: Home w/ Family Support Barriers to Progress Pt. states that his only possible barrier is stepping up into his home. Will speak to PT regarding this. Treatment Plan/Plan of Care Treatment,Training & Education: Yes Patient would benefit from OT for education, treatment and training to promote independence in ADL's, mobility, safety and/or upper extremity function for ADL' s. Plan of Care: ADL Retraining, Functional Mobility, UE Funct Exercise/Act Treatment Duration: Jul 13, 2017 Frequency: At least 5 of 7 days/Wk (IRF) Estimated Hrs Per Day: 1.5 hours per day Agreement: Yes Rehab Potential: Good Time/GCodes Start Time: 08:15 Stop Time: 09:15 Total Time Billed (hr/min): 60 Billed Treatment Time 1, EX x 30minutes, FA x 30minutes DELFINA JACKSON OT Jul 10, 2017 10:09
--- NOTE | 2017-07-10 11:03 | Physical Therapy Daily Note ---
PT Daily Note-Current Subjective Patient in bed pre tx, agrees to PT, has pain of 4/10 in his left elbow. Appearance Patient in wheelchair post tx with nurse call, phone, tray, friend in the room. Mental Status Patient Orientation: Person, Place, Situation Transfers Functional [place] Measure 0=Not Assessed/NA 4=Minimal Assistance 1=Total Assistance 5=Supervision or Setup 2=Maximal Assistance 6=Modified [place] 3=Moderate Assistance 7=Complete IndependenceIRFPAI Quality Coding Scale 6 Independent with activity with or without an assistive device 5 Patient requires set up or clean up by helper. Patient completes activity by themselves 4 Supervision or touching assist (CGA). [place] provide cues , steadying assist 3 The helper provides less than half the effort to complete the activity 2 The helper provides more than half the effort to complete the activity 1 Dependent. The helper does all the effort to complete an activity 7 Patient refused to complete or attempt activity 9 The patient did not perform the activity before the current illness or injury 88 Not attempted due to Medical conditions or safety concerns Transfers (B, C, W/C) (FIM): 5 Scootin Rollin Supine to/from Sit: 6 Sit to/from Stand: 5 Bed to/from Chair: 5 Weight Bearing Right Lower Extremity: Right Full Weight Bearing Left Lower Extremity: Left Touch Toe Bearing Gait Training Gait (FIM): 5 Distance: 150'x2 Gait Level of Assist: 5 Gait Persons Needed: 1 Gait Assistive Device: Walker Platform Patient is compliant with his weight bearing status. Exercises Supine Ex: Ankle pumps, Quad Set, Glut sets, Heel Slides, Short Arc Quads, Straight leg raise, Hip abd/add Supine Reps: 20 LAQ alternating for 5 min NuStep Minutes: 15 NuStep Workload: 5 (patient only performed ROM with the left leg, he did not push with it in order to comply with his weigh bearing status) Treatments bed mobility, transfers, ambulation, functional strengthening Assessment Current Status: Fair Progress improving strength in left leg PT Short Term Goals Short Term Goals Time Frame: Jul 13, 2017 Gait (FIM): 2 Gait Distance Comment: 100' Gait Level of Assist: 5 Gait Assistive Device: Walker Platform Wheelchair (FIM): 5 Wheelchair Distance: 150' Wheelchair Level of Assist: 5 PT Radiology Equipment Servicer Goals Radiology Equipment Servicer Goals PT Radiology Equipment Servicer Goals Time Frame: Jul 27, 2017 Transfers (B,C,W/C) (FIM): 6 Sit to Lying (QC): 6 Lying-Sitting on Side/Bed(QC): 6 Sit to Stand (QC): 6 Rollin Roll Left to Right (QC): 6 Chair/Npg-cu-Isiwy Xfer(QC): 6 Car Transfer (QC): 6 Gait (FIM): 5 Distance: 200' Walk 10 feet (QC): 4 Walk 10ft-Uneven Surface(QC): 4 Walk 50ft with 2 Turns (QC): 4 Walk 150 ft (QC): 4 Gait Level of Assist: 4 Gait Assistive Device: Walker Platform Stairs (FIM): 1 # of Steps: 1 1 Step (curb) (QC): 4 Stairs Level Of Assist: 4 PT Plan Problem List Problem List: Activity Tolerance, Functional Strength, Safety, Balance, Gait, Transfer, Bed Mobility, ROM Treatment/Plan Treatment Plan: Continue Plan of Care Treatment Plan: Bed Mobility, Education, Functional Activity Nancy, Functional Strength, Group Therapy, Gait, Safety, Therapeutic Exercise, Transfers Treatment Duration: Jul 27, 2017 Frequency: At least 5 of 7 days/Wk (IRF) Estimated Hrs Per Day: 1.5 hours per day Patient and/or Family Agrees t: Yes Safety Risks/Education Patient Education: Gait Training, Transfer Techniques, Reviewed Precautions, Correct Positioning, Safety Issues Teaching Recipient: Patient Teaching Methods: Demonstration, Discussion Response to Teaching: Reinforcement Needed Time/GCodes Time In: 1000 Time Out: 1100 Total Billed Treatment Time: 60 Total Billed Treatment 1 visit EX 35' GT 25' JALYN REYES PT Jul 10, 2017 11:03
--- NOTE | 2017-07-10 15:35 | Therapy Group Daily Note ---
Therapy Daily Group Note Patient Education Topic Other List Below (Recognizing Safety Signs Around Us) Exercises LE Seated Exercise, UE Exercise Other/Notes Pt participated in Group led by LOCKSTITCH SLEEVE MAKER which focused on recognizing the signs around us especially for safety. Group consisted of Introductions (Name, Where you are from & Your favorite Season & Why), Explanation of ARU and how it works for new patient on unit and activity in which pt identified signs and why it is important to recognize them. Pt participated in Seated UE & LE Ex before returning to room to rest at end of Group. Pt actively participated in complete activity and was able to give examples as well as Ex although needed redirection to stay on task and not get on laptop. Start Time: 13:00 Stop Time: 14:15 Total Billed Treatment Time: 75 Total Billed Treatment 1, GRP THERESE MORENO PTA Jul 10, 2017 15:35
[2017-07-10] MEDS: ENOXAPARIN 40 MG/0.4 ML (LOVENOX) SYR SC SCH (16:04)
[2017-07-10 18:00] VITALS: BP 132/76
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
[2017-07-10] MEDS: POLYETHYLENE GLYCOL 17 GM (MIRALAX) PACK PO SCH (19:58)
[2017-07-11 05:46] VITALS: BP 122/78
[2017-07-11] MEDS: METHOCARBAMOL 750 MG (ROBAXIN) TAB PO SCH ×3 (08:02→21:17)
[2017-07-11] MEDS: SENNA W/DOCUSATE (SENOKOT S) TABLET PO SCH ×2 (08:02→21:17)
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
--- NOTE | 2017-07-11 14:17 | Occupational Ther Daily Note ---
OT Current Status-Daily Note Subjective No pain reported. Appearance Pt. up in chair. Agrees to treatment. States that he showered this morning with girlfriend assist. Pt's significant other in room and confirms this. Mental Status/Objective Patient Orientation: Person, Place Functional [place] Measure 0=Not Assessed/NA 4=Minimal Assistance 1=Total Assistance 5=Supervision or Setup 2=Maximal Assistance 6=Modified [place] 3=Moderate Assistance 7=Complete [place] ADL-Treatment Functional [place] Measure 0=Not Assessed/NA 4=Minimal Assistance 1=Total Assistance 5=Supervision or Setup 2=Maximal Assistance 6=Modified [place] 3=Moderate Assistance 7=Complete IndependenceIRFPAI Quality Coding Scale 6 Independent with activity with or without an assistive device 5 Patient requires set up or clean up by helper. Patient completes activity by themselves 4 Supervision or touching assist (CGA). [place] provide cues , steadying assist 3 The helper provides less than half the effort to complete the activity 2 The helper provides more than half the effort to complete the activity 1 Dependent. The helper does all the effort to complete an activity 7 Patient refused to complete or attempt activity 9 The patient did not perform the activity before the current illness or injury 88 Not attempted due to Medical conditions or safety concerns Eating (FIM): 7 Eating (QC): 6 Grooming (FIM): 6 (per pt.) Oral Hygiene (QC): 6 Bathing (FIM): 5 (per pt. and S.O.) Shower/Bathe Self (QC): 4 Upper Body (FIM): 5 (per pt. and S.O.) Upper Body Dressing (QC): 4 Lower Body Dressing (FIM): 4 (Pt. states that he needed a little assistance with donning pants. Tomorrow, agrees to let Ot assist him with shower to educate him fully on use of equipment.) Lower Body Dressing (QC): 4 On/Off Footwear (QC): 4 Transfers (B, C, W/C) (FIM): 6 (Pt. demonstrates Mod I with using platform walker.) Other Treatment Pt. ambulated to therapy gym with Mod I. Completed 20 minutes on armbike to increase overall strength and endurance. Pt. then donned 1 lb. wrist weights and completed therapy peg activity. Tolerated this well. All needs met back in room. Pt. states that he feels ready to discharge home. Education OT Patient Education: Correct positioning, Exercise program, Progress toward Goal/Update tx plan, Purpose of tx/functional activities, Reviewed precautions, Rehab process, Transfer techniques Teaching Recipient: Patient Teaching Methods: Demonstration, Discussion Response to Teaching: Verbalize Understanding, Return Demonstration OT Short Term Goals Short Term Goals 1=Demonstrate adherence to instructed precautions during ADL tasks. 2=Patient will verbalize/demonstrate understanding of assistive devices/ modifications for ADL. 3=Patient will improve strength/tolerance for activity to enable patient to perform ADL's. OT History Faculty Member Goals History Faculty Member Goals Time Frame: Jul 13, 2017 Eating (FIM): 6 Eating (QC): 6 Groomin Oral Hygiene (QC): 6 Bathing(FIM): 6 Shower/Bathe Self (QC): 6 Upper Body Dressing(FIM): 6 Upper Body Dressing (QC): 6 Lower Body Dressing(FIM): 6 Lower Body Dressing (QC): 6 On/Off Footwear (QC): 6 Toileting(FIM): 6 Toileting Hygiene (QC): 6 Transfers (B,C,W/C) (FIM): 6 Toilet/Commode Transfer(FIM): 6 Toilet/Commode Transfer (QC): 6 Shower Transfer(FIM): 6 Additional Goals: 1-Demonstrate ADL Tasks, 2-Verbalize Understanding, 3- ImproveStrength/Nancy 1=Demonstrate adherence to instructed precautions during ADL tasks. 2=Patient will verbalize/demonstrate understanding of assistive devices/ modifications for ADL. 3=Patient will improve strength/tolerance for activity to enable patient to perform ADL's. OT Education/Plan Problem List/Assessment Assessment: Decreased Activ Tolerance, Impaired I ADL's, Impaired Self-Care Skills Discharge Recommendations Plan/Recommendations: Continue POC Therapy D/C Recommendations: Home w/ Family Support Equpiment Recommendations-D/C: Hip Kit Treatment Plan/Plan of Care Treatment,Training & Education: Yes Patient would benefit from OT for education, treatment and training to promote independence in ADL's, mobility, safety and/or upper extremity function for ADL' s. Plan of Care: ADL Retraining, Functional Mobility, UE Funct Exercise/Act Treatment Duration: Jul 13, 2017 Frequency: At least 5 of 7 days/Wk (IRF) Estimated Hrs Per Day: 1.5 hours per day Agreement: Yes Rehab Potential: Good Time/GCodes Start Time: 10:15 Stop Time: 11:15 Total Time Billed (hr/min): 60 Billed Treatment Time 1, EX x 30minutes, FA x 30minutes DELFINA JACKSON OT Jul 11, 2017 14:17
--- NOTE | 2017-07-11 14:20 | Occupational Ther Daily Note ---
OT Current Status-Daily Note Subjective No pain reported. Appearance Pt. up in chair. Agrees to ambulate to therapy gym with OT. Mental Status/Objective Patient Orientation: Person, Place, Time Functional [place] Measure 0=Not Assessed/NA 4=Minimal Assistance 1=Total Assistance 5=Supervision or Setup 2=Maximal Assistance 6=Modified [place] 3=Moderate Assistance 7=Complete [place] ADL-Treatment Functional [place] Measure 0=Not Assessed/NA 4=Minimal Assistance 1=Total Assistance 5=Supervision or Setup 2=Maximal Assistance 6=Modified [place] 3=Moderate Assistance 7=Complete IndependenceIRFPAI Quality Coding Scale 6 Independent with activity with or without an assistive device 5 Patient requires set up or clean up by helper. Patient completes activity by themselves 4 Supervision or touching assist (CGA). [place] provide cues , steadying assist 3 The helper provides less than half the effort to complete the activity 2 The helper provides more than half the effort to complete the activity 1 Dependent. The helper does all the effort to complete an activity 7 Patient refused to complete or attempt activity 9 The patient did not perform the activity before the current illness or injury 88 Not attempted due to Medical conditions or safety concerns Transfers (B, C, W/C) (FIM): 6 Other Treatment Pt. ambulated with OT to therapy gym using platform walker. Pt. completed 15 minutes on armbike. Sat to rest before ambulating back to room. All needs met back in room. Pt. tolerated treatment well. Education OT Patient Education: Correct positioning, Exercise program, Progress toward Goal/Update tx plan, Purpose of tx/functional activities, Reviewed precautions, Rehab process, Transfer techniques Teaching Recipient: Patient Teaching Methods: Demonstration, Discussion Response to Teaching: Verbalize Understanding, Return Demonstration OT Short Term Goals Short Term Goals 1=Demonstrate adherence to instructed precautions during ADL tasks. 2=Patient will verbalize/demonstrate understanding of assistive devices/ modifications for ADL. 3=Patient will improve strength/tolerance for activity to enable patient to perform ADL's. OT Millinery Designer Goals Millinery Designer Goals Time Frame: Jul 13, 2017 Eating (FIM): 6 Eating (QC): 6 Groomin Oral Hygiene (QC): 6 Bathing(FIM): 6 Shower/Bathe Self (QC): 6 Upper Body Dressing(FIM): 6 Upper Body Dressing (QC): 6 Lower Body Dressing(FIM): 6 Lower Body Dressing (QC): 6 On/Off Footwear (QC): 6 Toileting(FIM): 6 Toileting Hygiene (QC): 6 Transfers (B,C,W/C) (FIM): 6 Toilet/Commode Transfer(FIM): 6 Toilet/Commode Transfer (QC): 6 Shower Transfer(FIM): 6 Additional Goals: 1-Demonstrate ADL Tasks, 2-Verbalize Understanding, 3- ImproveStrength/Nancy 1=Demonstrate adherence to instructed precautions during ADL tasks. 2=Patient will verbalize/demonstrate understanding of assistive devices/ modifications for ADL. 3=Patient will improve strength/tolerance for activity to enable patient to perform ADL's. OT Education/Plan Problem List/Assessment Assessment: Impaired I ADL's Discharge Recommendations Plan/Recommendations: Continue POC Therapy D/C Recommendations: Home w/ Family Support Equpiment Recommendations-D/C: Hip Kit Target Placement Home with family support. Pt. states that he has no concerns with transferring back home. Treatment Plan/Plan of Care Treatment,Training & Education: Yes Patient would benefit from OT for education, treatment and training to promote independence in ADL's, mobility, safety and/or upper extremity function for ADL' s. Plan of Care: ADL Retraining, Functional Mobility, UE Funct Exercise/Act Treatment Duration: Jul 13, 2017 Frequency: At least 5 of 7 days/Wk (IRF) Estimated Hrs Per Day: 1.5 hours per day Agreement: Yes Rehab Potential: Good Time/GCodes Start Time: 13:00 Stop Time: 13:30 Total Time Billed (hr/min): 30 Billed Treatment Time 1, EX x 2 DELFINA JACKSON OT Jul 11, 2017 14:20
--- NOTE | 2017-07-11 14:34 | Physical Therapy Daily Note ---
PT Daily Note-Current Subjective Pt sitting at EOB upon arrival. Pt agrees to PT. Pain Numeric Pain Scale: 6 Location: Lower Location Body Site: Back Pain Description: Ache Mental Status Patient Orientation: Person, Place, Situation Transfers Functional [place] Measure 0=Not Assessed/NA 4=Minimal Assistance 1=Total Assistance 5=Supervision or Setup 2=Maximal Assistance 6=Modified [place] 3=Moderate Assistance 7=Complete IndependenceIRFPAI Quality Coding Scale 6 Independent with activity with or without an assistive device 5 Patient requires set up or clean up by helper. Patient completes activity by themselves 4 Supervision or touching assist (CGA). [place] provide cues , steadying assist 3 The helper provides less than half the effort to complete the activity 2 The helper provides more than half the effort to complete the activity 1 Dependent. The helper does all the effort to complete an activity 7 Patient refused to complete or attempt activity 9 The patient did not perform the activity before the current illness or injury 88 Not attempted due to Medical conditions or safety concerns Sit to/from Stand: 6 Sit to Stand (QC): 6 Weight Bearing Right Lower Extremity: Right Full Weight Bearing Left Lower Extremity: Left Touch Toe Bearing Wheelchair Training Does the Pt Use a Wheelchair?: Yes Wheelchair Distance: 3=150 ft Distance: 150' Wheelchair Level of Assist: 6 Wheel 50 ft with 2 turns (QC): 6 Wheel 150 ft (QC): 6 Type of Wheelchair: Manual Exercises Seated Therapy Exercises: Ankle pumps, Long arc quads, Hip flexion, Kicking activity Seated Reps: 20 Treatments Pt transfers from recliner to EOB to complete Seated Ex. Pt transfers to [facility] and propels in hallway until end of tx. Pt asks Nurse to propel [facility] off unit for a while. Pt has all needs met. Assessment Current Status: Good Progress Pt needs VC to remind to maintain WB status. PT Short Term Goals Short Term Goals Time Frame: Jul 13, 2017 Gait (FIM): 2 Gait Distance Comment: 100' Gait Level of Assist: 5 Gait Assistive Device: Walker Platform Wheelchair (FIM): 5 Wheelchair Distance: 150' Wheelchair Level of Assist: 5 PT Assisted Goals Assisted Goals PT Classified Ad Clerk Goals Time Frame: Jul 27, 2017 Transfers (B,C,W/C) (FIM): 6 Sit to Lying (QC): 6 Lying-Sitting on Side/Bed(QC): 6 Sit to Stand (QC): 6 Rollin Roll Left to Right (QC): 6 Chair/Rbb-gk-Gwgdx Xfer(QC): 6 Car Transfer (QC): 6 Gait (FIM): 5 Distance: 200' Walk 10 feet (QC): 4 Walk 10ft-Uneven Surface(QC): 4 Walk 50ft with 2 Turns (QC): 4 Walk 150 ft (QC): 4 Gait Level of Assist: 4 Gait Assistive Device: Walker Platform Stairs (FIM): 1 # of Steps: 1 1 Step (curb) (QC): 4 Stairs Level Of Assist: 4 PT Plan Problem List Problem List: Activity Tolerance, Safety, Gait Treatment/Plan Treatment Plan: Continue Plan of Care Treatment Plan: Bed Mobility, Education, Functional Activity Nancy, Functional Strength, Group Therapy, Gait, Safety, Therapeutic Exercise, Transfers Treatment Duration: Jul 27, 2017 Frequency: At least 5 of 7 days/Wk (IRF) Estimated Hrs Per Day: 1.5 hours per day Patient and/or Family Agrees t: Yes Safety Risks/Education Patient Education: Gait Training, Correct Positioning, Safety Issues Teaching Recipient: Patient Teaching Methods: Discussion Response to Teaching: Verbalize Understanding Time/GCodes Time In: 1330 Time Out: 1400 Total Billed Treatment Time: 30 Total Billed Treatment 1, EX (20m) & FA (10m) THERESE MORENO PTA Jul 11, 2017 14:34
[2017-07-11] MEDS: ENOXAPARIN 40 MG/0.4 ML (LOVENOX) SYR SC SCH (16:09)
[2017-07-11 17:28] VITALS: BP 142/84
[2017-07-11] MEDS: POLYETHYLENE GLYCOL 17 GM (MIRALAX) PACK PO SCH (19:48)
[2017-07-12 05:10] VITALS: BP 110/71
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
[2017-07-12] MEDS: METHOCARBAMOL 750 MG (ROBAXIN) TAB PO SCH ×3 (08:40→20:19)
[2017-07-12] MEDS: SENNA W/DOCUSATE (SENOKOT S) TABLET PO SCH ×2 (08:41→20:19)
[2017-07-12] MEDS: NICOTINE 14 MG (NICODERM) PATCH TD SCH (08:42)
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
--- NOTE | 2017-07-12 10:49 | Physical Therapy Daily Note ---
PT Daily Note-Current Subjective Patient in wheelchair pre tx, agrees to PT, no complaints of pain at rest, has pain in left shoulder and hip with activity. Appearance Patient in wheelchair post tx with nurse call, phone, tray, all needs met. Mental Status Patient Orientation: Person, Place, Situation Transfers Functional [place] Measure 0=Not Assessed/NA 4=Minimal Assistance 1=Total Assistance 5=Supervision or Setup 2=Maximal Assistance 6=Modified [place] 3=Moderate Assistance 7=Complete IndependenceIRFPAI Quality Coding Scale 6 Independent with activity with or without an assistive device 5 Patient requires set up or clean up by helper. Patient completes activity by themselves 4 Supervision or touching assist (CGA). [place] provide cues , steadying assist 3 The helper provides less than half the effort to complete the activity 2 The helper provides more than half the effort to complete the activity 1 Dependent. The helper does all the effort to complete an activity 7 Patient refused to complete or attempt activity 9 The patient did not perform the activity before the current illness or injury 88 Not attempted due to Medical conditions or safety concerns Transfers (B, C, W/C) (FIM): 6 Scootin Rollin Roll Left to Right (QC): 6 Supine to/from Sit: 6 Sit to/from Stand: 6 Sit to Lying (QC): 6 Sit to Stand (QC): 6 Chair/Ztd-pr-Ajcdr Xfer(QC): 6 Bed to/from Chair: 6 Car Transfer (QC): 6 Patient performs bed mobility and transfers with mod I, car transfer with mod I Weight Bearing Right Lower Extremity: Right Full Weight Bearing Left Lower Extremity: Left Touch Toe Bearing Gait Training Gait (FIM): 5 Distance: 150'x2 Walk 10 feet (QC): 4 Walk 50 ft with 2 Turns(QC): 4 Walk 150 ft (QC): 4 Walking 10ft/uneven surface-QC: 4 Gait Level of Assist: 5 Gait Persons Needed: 1 Gait Assistive Device: Walker Platform Patient can ambulate 150' with a platform walker with SBA, including 50' with at least 2 turns of 90 degrees and 10' over an uneven surface. Patient is compliant with his weight bearing status. Wheelchair Training Does the Pt Use a Wheelchair?: Yes Wheelchair (FIM): 6 Distance: 500'x2 Wheelchair Level of Assist: 6 Wheel 50 ft with 2 turns (QC): 6 Wheel 150 ft (QC): 6 Type of Wheelchair: Manual Stair Training Stair Training: Handrails/: uses walker Stairs (FIM): 1 #of Steps: 1 1 Step (curb) (QC): 5 4 Steps (QC): 88 12 Steps (QC): 88 Stairs: Pattern: Hops Level of Assist: 5 Patient can go up and down 1 step using a platform walker with SBA. Balance Picking up an Object (QC): 88 Exercises LAQ alternating for 5 min NuStep Minutes: 15 NuStep Workload: 5 (patient does not push with his left leg in compliance with his weight bearing status) Treatments bed mobility and transfers, ambulation, stairs, wheelchair mobility, functional strengthening and ROM Assessment Current Status: Fair Progress improved transfers and ambulation PT Short Term Goals Short Term Goals Time Frame: Jul 13, 2017 Gait (FIM): 2 Gait Distance Comment: 100' Gait Level of Assist: 5 Gait Assistive Device: Walker Platform Wheelchair (FIM): 5 Wheelchair Distance: 150' Wheelchair Level of Assist: 5 PT Nursing Home Goals [employer] Shuttle Driver Goals PT Nursing Home Goals Time Frame: Jul 27, 2017 Transfers (B,C,W/C) (FIM): 6 (met) Sit to Lying (QC): 6 (met) Lying-Sitting on Side/Bed(QC): 6 (met) Sit to Stand (QC): 6 (met) Rollin (met) Roll Left to Right (QC): 6 (met) Chair/Fts-eo-Kyxcm Xfer(QC): 6 (met) Car Transfer (QC): 6 (met) Gait (FIM): 5 (met) Distance: 200' Walk 10 feet (QC): 4 (met) Walk 10ft-Uneven Surface(QC): 4 (met) Walk 50ft with 2 Turns (QC): 4 (met) Walk 150 ft (QC): 4 (met) Gait Level of Assist: 4 (met) Gait Assistive Device: Walker Platform Stairs (FIM): 1 (met) # of Steps: 1 (met) 1 Step (curb) (QC): 4 (met) Stairs Level Of Assist: 4 (met) PT Plan Problem List Problem List: Activity Tolerance, Functional Strength, Safety, Balance, Gait, Transfer, ROM Treatment/Plan Treatment Plan: Continue Plan of Care Treatment Plan: Bed Mobility, Education, Functional Activity Nancy, Functional Strength, Group Therapy, Gait, Safety, Therapeutic Exercise, Transfers Treatment Duration: Jul 27, 2017 Frequency: At least 5 of 7 days/Wk (IRF) Estimated Hrs Per Day: 1.5 hours per day Patient and/or Family Agrees t: Yes Safety Risks/Education Patient Education: Gait Training, Transfer Techniques, Steps, Reviewed Precautions, Correct Positioning, W/C Management, Safety Issues Teaching Recipient: Patient Teaching Methods: Demonstration, Discussion Response to Teaching: Reinforcement Needed Time/GCodes Time In: 1000 Time Out: 1100 Total Billed Treatment Time: 60 Total Billed Treatment 1 visit [facility] 15' GT 25' EX 20' JALYN REYES PT Jul 12, 2017 10:49
--- NOTE | 2017-07-12 11:21 | Occupational Ther Daily Note ---
OT Current Status-Daily Note Subjective No pain reported. Appearance Pt. up in chair. Agrees to shower. Mental Status/Objective Patient Orientation: Person, Place, Time, Situation Functional [place] Measure 0=Not Assessed/NA 4=Minimal Assistance 1=Total Assistance 5=Supervision or Setup 2=Maximal Assistance 6=Modified [place] 3=Moderate Assistance 7=Complete [place] ADL-Treatment Functional [place] Measure 0=Not Assessed/NA 4=Minimal Assistance 1=Total Assistance 5=Supervision or Setup 2=Maximal Assistance 6=Modified [place] 3=Moderate Assistance 7=Complete IndependenceIRFPAI Quality Coding Scale 6 Independent with activity with or without an assistive device 5 Patient requires set up or clean up by helper. Patient completes activity by themselves 4 Supervision or touching assist (CGA). [place] provide cues , steadying assist 3 The helper provides less than half the effort to complete the activity 2 The helper provides more than half the effort to complete the activity 1 Dependent. The helper does all the effort to complete an activity 7 Patient refused to complete or attempt activity 9 The patient did not perform the activity before the current illness or injury 88 Not attempted due to Medical conditions or safety concerns Grooming (FIM): 6 Bathing (FIM): 5 Shower/Bathe Self (QC): 5 Upper Body (FIM): 6 Upper Body Dressing (QC): 6 Lower Body Dressing (FIM): 6 Lower Body Dressing (QC): 6 (Pt. utilized sock aide and dressing stick to don pants and socks.) On/Off Footwear (QC): 6 Toileting (FIM): 6 Toileting Hygiene (QC): 6 Transfers (B, C, W/C) (FIM): 6 Toilet/Commode Transfer (FIM): 6 Toilet Transfer (QC): 6 Shower Transfer(FIM): 5 Other Treatment After ADLs in room, pt. able to ambulate to therapy gym. Completed armbike x 20minutes to increase overall strength and endurance. Tolerated this well. Ambulated back to room with platform walker. All needs met. Education OT Patient Education: Correct positioning, Exercise program, Modified ADL techniques, Progress toward Goal/Update tx plan, Purpose of tx/functional activities, Reviewed precautions, Rehab process, Transfer techniques Teaching Recipient: Patient Teaching Methods: Demonstration, Discussion Response to Teaching: Verbalize Understanding, Return Demonstration OT Short Term Goals Short Term Goals 1=Demonstrate adherence to instructed precautions during ADL tasks. 2=Patient will verbalize/demonstrate understanding of assistive devices/ modifications for ADL. 3=Patient will improve strength/tolerance for activity to enable patient to perform ADL's. OT Business Machine Mechanic Goals Business Machine Mechanic Goals Time Frame: Jul 13, 2017 Eating (FIM): 6 Eating (QC): 6 Groomin Oral Hygiene (QC): 6 Bathing(FIM): 6 Shower/Bathe Self (QC): 6 Upper Body Dressing(FIM): 6 Upper Body Dressing (QC): 6 Lower Body Dressing(FIM): 6 Lower Body Dressing (QC): 6 On/Off Footwear (QC): 6 Toileting(FIM): 6 Toileting Hygiene (QC): 6 Transfers (B,C,W/C) (FIM): 6 Toilet/Commode Transfer(FIM): 6 Toilet/Commode Transfer (QC): 6 Shower Transfer(FIM): 6 Additional Goals: 1-Demonstrate ADL Tasks, 2-Verbalize Understanding, 3- ImproveStrength/Nancy 1=Demonstrate adherence to instructed precautions during ADL tasks. 2=Patient will verbalize/demonstrate understanding of assistive devices/ modifications for ADL. 3=Patient will improve strength/tolerance for activity to enable patient to perform ADL's. OT Education/Plan Discharge Recommendations Plan/Recommendations: Continue POC Therapy D/C Recommendations: Home w/ Family Support Equpiment Recommendations-D/C: Hip Kit Comment Pt. does have a significant other and a sister that can assist as needed. Treatment Plan/Plan of Care Treatment,Training & Education: Yes Patient would benefit from OT for education, treatment and training to promote independence in ADL's, mobility, safety and/or upper extremity function for ADL' s. Plan of Care: ADL Retraining, Functional Mobility, UE Funct Exercise/Act Treatment Duration: Jul 13, 2017 Frequency: At least 5 of 7 days/Wk (IRF) Estimated Hrs Per Day: 1.5 hours per day Agreement: Yes Rehab Potential: Good Time/GCodes Start Time: 08:15 Stop Time: 09:15 Total Time Billed (hr/min): 60 Billed Treatment Time 1, ADL x 40minutes, Ex x 20minutes DELFINA JACKSON OT Jul 12, 2017 11:21
--- NOTE | 2017-07-12 14:57 | Therapy Group Daily Note ---
Therapy Daily Group Note Exercises LE Seated Exercise, UE Exercise Other/Notes Pt attends PT/OT Group in Therapy Gym. Pt propelled self to Group in [facility]. Group consisted of Introduction (Name, Where are you from & Where is your favorite place besides your home?), Seated UE & LE EX using Yellow Theraband for added Resistance as well as Socialization Activity in Jeopardy Format. Pt actively participated in Group by verbally giving answers during Socialization Activity and Physically completing Ex when asked. Pt returned to room to rest at end of Group with all needs met. Start Time: 13:05 Stop Time: 14:10 Total Billed Treatment Time: 65 Total Billed Treatment 1, GRP MADISYNTHERESE GARCÍA PARTNER MANAGEMENT CONSULTANT Jul 12, 2017 14:57
[2017-07-12] MEDS ORDERED: SENN-20 PO (14:59)
[2017-07-12] MEDS ORDERED: Oxycodone Hcl PO (14:59)
[2017-07-12] MEDS ORDERED: ACET325T49 PO (14:59)
[2017-07-12] MEDS ORDERED: METH750T3 PO (14:59)
[2017-07-12] MEDS: ENOXAPARIN 40 MG/0.4 ML (LOVENOX) SYR SC SCH (16:02)
[2017-07-12 17:29] VITALS: BP 128/78
[2017-07-12] MEDS: POLYETHYLENE GLYCOL 17 GM (MIRALAX) PACK PO SCH (20:21)
[2017-07-13] MEDS: MILK OF MAGNESIA 400 MG/5 ML 30 ML UDC PO PRN (01:59)
[2017-07-13 05:07] VITALS: BP 130/85
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
[2017-07-13] MEDS: SENNA W/DOCUSATE (SENOKOT S) TABLET PO SCH (08:56)
[2017-07-13] MEDS: METHOCARBAMOL 750 MG (ROBAXIN) TAB PO SCH (08:56)
[2017-07-13] MEDS: NICOTINE 14 MG (NICODERM) PATCH TD SCH (08:56)
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
--- NOTE | 2017-07-13 10:59 | Therapy Team Discharge Summary ---
Therapy Discharge Summary Discharge Recommendations Date of Discharge 07-13-17 Therapy D/C Recommendations: Home w/ Family Support Occupational Therapy Pt. has been seen by occupational therapy to increase overall strength and endurance with most tasks. Pt. has met most goals. Pt. is able to bathe/dress self with DS and sock aide. Pt. is discharging home with sister and significant other's support. No further OT needed. Pt. would benefit from a DS and sock aide if possible. Otherwise, states that he has assistance as needed for this at home. Impaired I ADL's PT Long-Term Goals Long-Term Goals PT Band Builder Goals Time Frame: Jul 27, 2017 Transfers (B,C,W/C) (FIM): 6 (met) Roll Left to Right (QC): 6 (met) Sit to Lying (QC): 6 (met) Lying-Sitting on Side/Bed(QC): 6 (met) Sit to Stand (QC): 6 (met) Chair/Dai-yi-Qysql Xfer(QC): 6 (met) Car Transfer (QC): 6 (met) Gait (FIM): 5 (met) Distance: 200' Walk 10 feet (QC): 4 (met) Walk 10ft-Uneven Surface(QC): 4 (met) Walk 50ft with 2 Turns (QC): 4 (met) Walk 150 ft (QC): 4 (met) Gait Level of Assist: 4 (met) Gait Assistive Device: Walker Platform Stairs (FIM): 1 (met) # of Steps: 1 (met) 1 Step (curb) (QC): 4 (met) Stairs Level Of Assist: 4 (met) OT Band Builder Goals Band Builder Goals Time Frame: Jul 13, 2017 Eating (FIM): 6 (met) Eating (QC): 6 (met) Oral Hygiene (QC): 6 (met) Grooming(FIM): 6 (met) Bathing(FIM): 6 (met) Shower/Bathe Self (QC): 6 (met) Upper Body Dressing(FIM): 6 (met) Upper Body Dressing (QC): 6 (met) Lower Body Dressing(FIM): 6 (met) Lower Body Dressing (QC): 6 (met) On/Off Footwear (QC): 6 (met) Toileting(FIM): 6 (met) Toileting Hygiene (QC): 6 (met) Transfers (B,C,W/C) (FIM): 6 (met) Toilet/Commode Transfer(FIM): 6 (met) Toilet/Commode Transfer (QC): 6 (met) Shower Transfer(FIM): 6 (not met) Additional Goals: 1-Demonstrate ADL Tasks, 2-Verbalize Understanding, 3- ImproveStrength/Nancy 1=Demonstrate adherence to instructed precautions during ADL tasks. 2=Patient will verbalize/demonstrate understanding of assistive devices/ modifications for ADL. 3=Patient will improve strength/tolerance for activity to enable patient to perform ADL's. DELFINA JACKSON OT Jul 13, 2017 10:59
[2017-07-13 11:21] VITALS: BP 130/85
== END 2017-07-13 11:20 | disposition home or self-care (01) | DRG 561 ==
PROVIDERS: ADMIT Physical Medicine & Rehabilitation; ATTEND Physical Medicine & Rehabilitation
DX: S32.402D Unspecified fracture of left acetabulum, subsequent encounter for fracture with routine healing (principal); S32.502D Unspecified fracture of left pubis, subsequent encounter for fracture with routine healing; S42.032D Displaced fracture of lateral end of left clavicle, subsequent encounter for fracture with routine healing; S32.049D Unspecified fracture of fourth lumbar vertebra, subsequent encounter for fracture with routine healing; K59.00 Constipation, unspecified; F20.9 Schizophrenia, unspecified; F10.20 Alcohol dependence, uncomplicated; B19.20 Unspecified viral hepatitis C without hepatic coma; F15.10 Other stimulant abuse, uncomplicated; F17.210 Nicotine dependence, cigarettes, uncomplicated; V43.6 Car passenger injured in collision with car, pick-up truck or van in traffic accident